=== PATIENT | female | born 1985 | race Hispanic/Latino ===

== ENCOUNTER 2020-02-24 20:28 | Observation (INO) | payer MEDICAID ==
[~2020-02-24] VITALS: Ht 157.5 cm; Wt 107.9 kg
[2020-02-24 20:59] LABS: BASOPHILS % (AUTO) 0.5 % (0.0-5.0); EOSINOPHILS % (AUTO) 0.4 % (0.0-8.0); HEMATOCRIT 37.6 % (36-48); LYMPHOCYTES % (AUTO) 17.4 % (21.0-51.0); MEAN CORPUSCULAR HEMOGLOBIN 29.8 pg (27.0-33.0); MEAN CORPUSCULAR HGB CONC 33.2 g/dL (32.0-36.0); MEAN CORPUSCULAR VOLUME 89.7 fL (79-99); MONOCYTES % (AUTO) 7.6 % (3.0-13.0); NEUTROPHILS % (AUTO) 73.7 % (40.0-77.0); PLATELET COUNT (AUTO) 325 K/uL (130-400); RED BLOOD CELL COUNT(AUTO) 4.19 MIL/uL (4.00-5.50); RED CELL DISTRIBUTION WIDTH 12.8 % (11.0-15.5); WHITE BLOOD COUNT (AUTO) 16.6 K/uL (4.8-10.8)
[2020-02-24 21:12] LABS: APPEARANCE,URINE Clear (CLEAR); BILIRUBIN,URINE Negative (NEGATIVE); COLOR,URINE Yellow (YELLOW); GLUCOSE, URINE (UA) 250 mg/dL (NEGATIVE); KETONES,URINE Negative (NEGATIVE); LEUKOCYTE ESTERASE ,URINE Small (NEGATIVE); NITRATE,URINE Negative (NEGATIVE); OCCULT BLOOD,URINE Negative (NEGATIVE); PROTEIN,URINE Negative (NEGATIVE)
[2020-02-24 21:12] LABS: CREATININE 0.6 mg/dL (0.5-1.5); POTASSIUM 3.5 mmol/L (3.5-5.1)
[2020-02-24] MEDS ORDERED: ACETAMINOPHEN 325 MG TAB ONE (21:13)
[2020-02-24] MEDS ORDERED: SODIUM CHLORIDE 0.9% 1000ML 1,000 ML IV ONE (21:14)
[2020-02-24 21:16] LABS: HCG,QUAL RESULT NEGATIVE (NEGATIVE)
[2020-02-24 21:19] LABS: ALBUMIN 3.6 g/dL (3.5-5.0); BILIRUBIN,TOTAL 0.4 mg/dL (0.2-1.0); TOTAL PROTEIN, SERUM 8.4 g/dL (6.0-8.3)
[2020-02-24 21:26] LABS: BACTERIA,URINE Rare /HPF (None Seen); RBC,URINE None Seen /HPF (0-1); SQUAMOUS EPITHELIAL CELL,UR 0-2 /HPF (0-2); WBC,URINE 0-1 /HPF (0-1)
[2020-02-24] MEDS ORDERED: ONDANSETRON HCL 4 MG/2 ML VIAL ONE (21:33)
[2020-02-24] MEDS ORDERED: ACETAMINOPHEN EXTRA STRENGTH 500 MG TABLET ONE (21:36)
[2020-02-24] MEDS ORDERED: MORPHINE SULFATE 4 MG/1ML SYG ONE ×2 (21:48→23:34)
[2020-02-24] MEDS ORDERED: IOHEXOL-350 75 ML VIAL IV ONE (22:15)
[2020-02-24] MEDS ORDERED: DOXYCYCLINE HYCLATE 100 MG TABLET PO ONE (23:34)
[2020-02-24] MEDS ORDERED: CEFOXITIN SODIUM 2 GM VIAL ONE (23:34)
[2020-02-25] MEDS: DOXYCYCLINE 100MG+NS 250ML 250 ML IV SCH ×2 (01:15→15:11)
[2020-02-25] MEDS ORDERED: MORPHINE SULFATE 2 MG/ML 1ML SYG IV PRN (01:15)
[2020-02-25] MEDS ORDERED: ONDANSETRON HCL 4 MG/2 ML VIAL IV PRN (01:15)
[2020-02-25] MEDS ORDERED: ACETAMINOPHEN 325 MG TAB PO PRN ×2 (01:15)
[2020-02-25] MEDS ORDERED: CEFTRIAXONE SODIUM 1 GM IV SCH (01:15)
[2020-02-25] MEDS ORDERED: CEFTRIAXONE SODIUM 1 GM ONE (01:55)
[2020-02-25] MEDS ORDERED: DOXYCYCLINE 100MG+NS 250ML 250 ML IV ONE (01:55)
[2020-02-25] MEDS ORDERED: ONDANSETRON HCL 4 MG/2 ML VIAL ONE (02:09)
[2020-02-25 02:32] LABS: AMPHET/METH SCREEN,URINE NEGATIVE (NEGATIVE); BARBITURATE SCREEN, URINE NEGATIVE (NEGATIVE); BENZODIAZEPINES SCREEN,URINE NEGATIVE (NEGATIVE); CANNABINOID SCREEN,URINE NEGATIVE (NEGATIVE); COCAINE SCREEN,URINE NEGATIVE (NEGATIVE); OPIATE SCREEN,URINE NEGATIVE (NEGATIVE); PHENCYCLIDINE SCREEN,URINE NEGATIVE (NEGATIVE)
--- NOTE | 2020-02-25 03:15 | NUR ---
ADMISSION NOTE ADMIT TO ROOM 308 VIA STRETCHER FROM ER. PATIENT AWAKE, ALERT, OX3, R FOREARM 18 GAUGE CATHETER WITH IVF INFUSING WELL, NO C/.O PAIN AT THIS TIME, C/O NAUSEA, MEDICATED IN ER PRIOR TO TRANSFER, TEACH PATIENT PLAN OF CARE AND EXPECTED OUTCOME, PATIENT VERBALIZES UNDERSTANDING VIA TEACH BACK
[2020-02-25 03:16] VITALS: BP 108/57
[2020-02-25] MEDS ORDERED: EXCEES PO (03:20)
[2020-02-25] MEDS ORDERED: HYDROMORPHONE HCL 2 MG/ML VIAL IVP PRN (04:00)
[2020-02-25] MEDS: SODIUM CHLORIDE 0.9% 1000ML 1,000 ML IV SCH ×3 (04:10→20:47)
[2020-02-25 07:11] LABS: HEMATOCRIT 34.9 % (36-48); MEAN CORPUSCULAR HEMOGLOBIN 30.1 pg (27.0-33.0); MEAN CORPUSCULAR VOLUME 91.4 fL (79-99); RED BLOOD CELL COUNT(AUTO) 3.82 MIL/uL (4.00-5.50); RED CELL DISTRIBUTION WIDTH 12.9 % (11.0-15.5); WHITE BLOOD COUNT (AUTO) 13.8 K/uL (4.8-10.8)
[2020-02-25] MEDS ORDERED: FAMOTIDINE/PF 20 MG/2 ML VIAL IV ONE (07:27)
[2020-02-25 07:34] LABS: CREATININE 0.5 mg/dL (0.5-1.5); POTASSIUM 3.6 mmol/L (3.5-5.1)
[2020-02-25] MEDS: FAMOTIDINE/PF 20 MG/2 ML VIAL IV SCH ×2 (07:52→20:46)
[2020-02-25] MEDS ORDERED: DIATR MEGLU/DIATRIZOATE SODIUM 30 ML BOTTLE ONE (08:39)
[2020-02-25] MEDS ORDERED: KETOROLAC TROMETHAMINE 15MG/ML ONE (09:07)
[2020-02-25 09:59] VITALS: BP 108/59
[2020-02-25 11:56] VITALS: BP 117/65
[2020-02-25] MEDS: LEVOFLOXACIN 500 MG/D5W 100 ML 100 ML IV SCH (17:00)
[2020-02-25 17:19] VITALS: BP 114/65
--- NOTE | 2020-02-25 19:27 | NUR ---
cm note met with patient . pt lives with spouse, daughter and son , pt is independent with adls/ambulation no dme. no home services. drives. dc plan is back home. Addendum: 02/25/20 at 1933 by NAOMY WASHINGTON CM Amended: Links added.
[2020-02-25 19:59] VITALS: BP 106/64
--- NOTE | 2020-02-25 20:00 | NUR ---
ASSESSMENT NOTE PATIENT AWAKE, ALERT,OX3, NO SOB NO C/O PAIN AT THIS TIME, IVF INFUSING WELL, TEACH PATIENT PLAN OF CARE AND EXPECTED OUTCOME, PATIENT VERBALIZES UNDERSTANDING VIA TEACH BACK
[2020-02-25] MEDS ORDERED: METRONIDAZOLE 500MG/100ML BAG 100 ML ONE (20:43)
[2020-02-25] MEDS: METRONIDAZOLE 500MG/100ML BAG 100 ML IV SCH (20:47)
[2020-02-25 23:49] VITALS: BP 100/68
[2020-02-26] MEDS: HYDROCODONE/ACETAMINOPHEN 5/325 MG TAB PO PRN ×3 (02:53→16:27)
[2020-02-26 03:56] VITALS: BP 104/64
[2020-02-26 04:11] LABS: BASOPHILS % (AUTO) 0.8 % (0.0-5.0); EOSINOPHILS % (AUTO) 1.7 % (0.0-8.0); LYMPHOCYTES % (AUTO) 23.7 % (21.0-51.0); MEAN CORPUSCULAR HEMOGLOBIN 29.9 pg (27.0-33.0); MEAN CORPUSCULAR HGB CONC 32.9 g/dL (32.0-36.0); MEAN CORPUSCULAR VOLUME 90.9 fL (79-99); MONOCYTES % (AUTO) 8.3 % (3.0-13.0); PLATELET COUNT (AUTO) 260 K/uL (130-400); RED BLOOD CELL COUNT(AUTO) 3.85 MIL/uL (4.00-5.50); RED CELL DISTRIBUTION WIDTH 12.7 % (11.0-15.5)
[2020-02-26 04:27] LABS: CREATININE 0.5 mg/dL (0.5-1.5); POTASSIUM 3.6 mmol/L (3.5-5.1)
[2020-02-26] MEDS: METRONIDAZOLE 500MG/100ML BAG 100 ML IV SCH ×2 (05:03→15:02)
[2020-02-26] MEDS: SODIUM CHLORIDE 0.9% 1000ML 1,000 ML IV SCH ×2 (07:10→17:10)
[2020-02-26 08:00] VITALS: BP 104/74
[2020-02-26] MEDS: FAMOTIDINE/PF 20 MG/2 ML VIAL IV SCH (10:21)
[2020-02-26 12:14] VITALS: BP 13/61
[2020-02-26] MEDS ORDERED: LEVO500T2 PO (15:51)
[2020-02-26] MEDS ORDERED: METR500T PO (15:51)
[2020-02-26] MEDS: LEVOFLOXACIN 500 MG/D5W 100 ML 100 ML IV SCH (16:26)
[2020-02-26 17:09] VITALS: BP 95/60
--- NOTE | 2020-02-26 18:15 | NUR ---
NOTE DISCHARGE INSTRUCTIONS GIVEN TO PATIENT. VERBALIZED UNDERSTANDING. REFER TO DC SUMMARY FOR DETAILS.
== END 2020-02-26 18:25 | disposition home or self-care (01) ==
LOC: EDH 20:28 → EDHIP 20:29 → 3BH 02-25 02:44
PROVIDERS: ADMIT Internal Medicine; ATTEND Internal Medicine
DX: R10.30 Lower abdominal pain, unspecified (principal); Z20.828 Contact with and (suspected) exposure to other viral communicable diseases; D72.829 Elevated white blood cell count, unspecified; J45.909 Unspecified asthma, uncomplicated; F17.210 Nicotine dependence, cigarettes, uncomplicated; K76.0 Fatty (change of) liver, not elsewhere classified; D25.9 Leiomyoma of uterus, unspecified
CPT/HCPCS: 36415 ×3; 74176; 74177; 76856; 80048 ×2; 80053; 80305; 81001; 81025; 83605; 83630; 83690 ×2; 85025 ×2; 85027; 87040; 87088; 87210; 87426; 87486; 87797; 96361; 96365; 96366; 96367; 96375; 96376 ×2; 99285; G0378 ×26; J0694; J0696; J1885; J1956 ×2; J2270 ×2; J2405 ×2; J3490 ×8; J7030; Q9963; Q9967; U0003

== ENCOUNTER 2021-04-28 15:48 | Emergency (ER) | payer MEDICAID ==
[~2021-04-28] VITALS: Ht 157.5 cm; Wt 111.1 kg
[~2021-04-28 15:48] MED LIST: EXCEES PO; LEVO500T2 PO; METR500T PO
[2021-04-28 16:18] LABS: BASOPHILS % (AUTO) 0.8 % (0.0-5.0); EOSINOPHILS % (AUTO) 1.9 % (0.0-8.0); HEMATOCRIT 37.1 % (36-48); LYMPHOCYTES % (AUTO) 34.3 % (21.0-51.0); MEAN CORPUSCULAR HEMOGLOBIN 27.5 pg (27.0-33.0); MEAN CORPUSCULAR HGB CONC 32.3 g/dL (32.0-36.0); MEAN CORPUSCULAR VOLUME 85.1 fL (79-99); MONOCYTES % (AUTO) 8.3 % (3.0-13.0); NEUTROPHILS % (AUTO) 54.4 % (40.0-77.0); PLATELET COUNT (AUTO) 377 K/uL (130-400); RED BLOOD CELL COUNT(AUTO) 4.36 MIL/uL (4.00-5.50); RED CELL DISTRIBUTION WIDTH 13.8 % (11.0-15.5); WHITE BLOOD COUNT (AUTO) 9.3 K/uL (4.8-10.8)
[2021-04-28 16:20] LABS: APPEARANCE,URINE Clear (CLEAR); BILIRUBIN,URINE Negative (NEGATIVE); COLOR,URINE Yellow (YELLOW); GLUCOSE, URINE (UA) Negative (NEGATIVE); KETONES,URINE Negative (NEGATIVE); LEUKOCYTE ESTERASE ,URINE Negative (NEGATIVE); NITRATE,URINE Negative (NEGATIVE); OCCULT BLOOD,URINE Negative (NEGATIVE); PROTEIN,URINE Negative (NEGATIVE)
[2021-04-28 16:27] LABS: AMPHET/METH SCREEN,URINE NEGATIVE (NEGATIVE); BARBITURATE SCREEN, URINE NEGATIVE (NEGATIVE); BENZODIAZEPINES SCREEN,URINE NEGATIVE (NEGATIVE); CANNABINOID SCREEN,URINE NEGATIVE (NEGATIVE); COCAINE SCREEN,URINE NEGATIVE (NEGATIVE); OPIATE SCREEN,URINE NEGATIVE (NEGATIVE); PHENCYCLIDINE SCREEN,URINE NEGATIVE (NEGATIVE)
[2021-04-28 16:28] LABS: CARBON DIOXIDE 27 mmol/L (21-32); CHLORIDE 104 mmol/L (101-111); CREATININE 0.6 mg/dL (0.5-1.5); GLOMERULAR FILTR. RATE CALC 120 mL/min (>60); GLUCOSE,RANDOM 113 mg/dL (70-105); POTASSIUM 3.3 mmol/L (3.5-5.1); SODIUM SERUM 139 mmol/L (136-145); UREA NITROGEN, BLOOD 8 mg/dL (7-18)
[2021-04-28] MEDS ORDERED: CHARCOAL/SORBITOL 50 GM/240 ML SUSP ONE (16:30)
[2021-04-28 16:32] LABS: ACETAMINOPHEN < 1 mcg/mL (10-30); ALANINE AMINOTRANSFERASE 132 U/L (12-78); ALBUMIN 3.5 g/dL (3.5-5.0); ALCOHOL, BLOOD < 3 mg/dL (0-10); ASPARTATE AMINOTRANSFERASE 55 U/L (10-37); BILIRUBIN,TOTAL 0.2 mg/dL (0.2-1.0); CREATINE KINASE, TOTAL 27 U/L (21-232); SALICYLATE < 2.8 mg/dL (2.8-20.0); TOTAL PROTEIN, SERUM 8.1 g/dL (6.0-8.3)
[2021-04-28] MEDS ORDERED: CHARCOAL/SORBITOL 50 GM/240 ML SUSP PO SCH (17:30)
[2021-04-28] MEDS ORDERED: ONDANSETRON 4MG INJ ONE (18:39)
[2021-04-28] MEDS ORDERED: KCL 20 MEQ ERTAB PO ONE (19:00)
[2021-04-28] MEDS ORDERED: ONDANSETRON 4MG INJ IVP ONE (19:45)
[2021-04-29 08:24] VITALS: BP 119/78
== END 2021-04-29 11:39 | disposition home or self-care (01) ==
LOC: EDH 15:48
DX: T50.992A Poisoning by other drugs, medicaments and biological substances, intentional self-harm, initial encounter (principal); F32.A Depression, unspecified; Z79.82 Long term (current) use of aspirin; Z79.899 Other long term (current) drug therapy; Y92.89 Other specified places as the place of occurrence of the external cause
CPT/HCPCS: 36415; 80053; 80305; 81003; 82550; 84703; 85025; 93005; 96374; 99285; G0481; J2405

== ENCOUNTER 2021-09-02 03:00 | Emergency (ER) | payer MEDICAID ==
[~2021-09-02] VITALS: Ht 157.5 cm; Wt 112.9 kg
[2021-09-02] MEDS ORDERED: LIDOCAINE HCL 2% VISCOUS 15 ML UDCUP ONE ×2 (03:22→05:53)
[2021-09-02] MEDS ORDERED: MAG/ALUM/SIMETH 30 ML UDCUP ONE ×2 (03:22→05:54)
[2021-09-02] MEDS ORDERED: DICYCLOMINE HCL 10 MG/5 ML ML PO ONE ×2 (03:23→03:30)
[2021-09-02] MEDS ORDERED: MAG/ALUM/SIMETH 30 ML UDCUP PO ONE ×2 (03:30→06:00)
[2021-09-02] MEDS ORDERED: LIDOCAINE HCL 2% VISCOUS 15 ML UDCUP PO ONE ×2 (03:30→06:00)
[2021-09-02] MEDS ORDERED: FAMOTIDINE 20MG VIAL IV ONE (04:30)
[2021-09-02] MEDS ORDERED: METOCLOPRAMIDE 10 MG/2 ML VIAL IVP ONE (04:30)
[2021-09-02] MEDS ORDERED: PANTOPRAZOLE 40 MG/VIAL IVP ONE (04:30)
[2021-09-02] MEDS ORDERED: ONDANSETRON 4MG INJ IVP ONE (04:30)
[2021-09-02 04:35] LABS: BASOPHILS % (AUTO) 0.9 % (0.0-5.0); EOSINOPHILS % (AUTO) 4.3 % (0.0-8.0); HEMATOCRIT 37.3 % (36-48); LYMPHOCYTES % (AUTO) 34.8 % (21.0-51.0); MEAN CORPUSCULAR HEMOGLOBIN 25.7 pg (27.0-33.0); MEAN CORPUSCULAR HGB CONC 30.8 g/dL (32.0-36.0); MEAN CORPUSCULAR VOLUME 83.4 fL (79-99); NEUTROPHILS % (AUTO) 52.8 % (40.0-77.0); PLATELET COUNT (AUTO) 404 K/uL (130-400); RED BLOOD CELL COUNT(AUTO) 4.47 MIL/uL (4.00-5.50); WHITE BLOOD COUNT (AUTO) 9.2 K/uL (4.8-10.8)
[2021-09-02 04:46] LABS: CREATININE 0.7 mg/dL (0.5-1.5); POTASSIUM 3.7 mmol/L (3.5-5.1)
[2021-09-02 04:50] LABS: ALBUMIN 3.2 g/dL (3.5-5.0); TOTAL PROTEIN, SERUM 7.9 g/dL (6.0-8.3)
[2021-09-02 05:16] LABS: BILIRUBIN,TOTAL 0.1 mg/dL (0.2-1.0)
[2021-09-02] MEDS ORDERED: PANT40TA PO (05:51)
[2021-09-02] MEDS ORDERED: DICY20TA2 PO (05:51)
[2021-09-02] MEDS ORDERED: ONDA4TAB10 PO (05:51)
[2021-09-02] MEDS ORDERED: METO-296 PO (05:51)
[2021-09-02 05:58] VITALS: BP 124/76
== END 2021-09-02 06:08 | disposition home or self-care (01) ==
LOC: EDH 03:00
DX: K21.9 Gastro-esophageal reflux disease without esophagitis (principal); R10.13 Epigastric pain; Z90.49 Acquired absence of other specified parts of digestive tract; Z98.890 Other specified postprocedural states; Z79.82 Long term (current) use of aspirin; Z79.899 Other long term (current) drug therapy
CPT/HCPCS: 36415; 80053; 83690; 85025; 96374; 96375; 99284; J2405; J2765; S0028; S0164; C9113; J3490